=== PATIENT | male | born 1950 | race African-American/Black ===

== ENCOUNTER 2016-11-10 17:41 | Emergency (ER) | payer OTHER, MEDICAID ==
--- NOTE | 2016-11-10 19:07 | CT ---
Noncontrast Head CT Indication: Trauma.. Technique: Standard noncontrast axial CT images of the head were performed. Dose reduction techniq ues were utilized. Findings: Underlying white matter disease, moderate severity, with mild underlying atrophy. No evid ence of intracranial hemorrhage, mass effect, midline shift. Reconstructed bone windows are negative for fracture. The paranasal sinuses are clear. Impression: Negative noncontrast CT of the brain. Underlying atrophy and white matter disease. Results called to. Maurizio Santacruz PA-C at the time of the interpretation.
--- NOTE | 2016-11-10 19:11 | EDPHY ---
H & P Stated Complaint: Found on floor of [facility] w/ open ETOH bottles HPI/ROS: Chief complaint: Alcohol intoxication, fall History of present illness: This is a 66-year-old male brought to the emergency department by EMS from [facility]. Patient had apparently fallen out of his wheelchair. Staff found alcohol bottles around him. He does admit to drinking alcohol. He denies other associated signs or symptoms. He is extremely agitated and will not converse with me at length. Review of systems: Unable to obtain as patient will not speak with - Personal History Current Tetanus/Diphtheria Vaccine: Unsure Current Tetanus Diphtheria and Acellular Pertussis (TDAP): Unsure - Medical/Surgical History Hx Asthma: No Hx Chronic Respiratory Disease: No Hx Diabetes: No Hx Cardiac Disease: No Hx Renal Disease: No Hx Cirrhosis: No Hx Alcoholism: Yes Hx HIV/AIDS: No Hx Splenectomy or Spleen Trauma: No Other PMH: HTN-non compliant, neuropathy, chronic back pain. - Social History Smoking Status: Light smoker - Physical Exam Exam: General Appearance: Alert, nontoxic Eyes: PERRLA Respiratory: Lungs clear to auscultation bilaterally Cardiac: Regular rate and rhythm. Gastrointestinal: Bowel sounds present. Abdomen is soft, nondistended, nontender. Neurological: Alert. Strength and sensation intact and symmetrical. Skin: Contusion above the left eye. Otherwise a head-to-toe examination does not reveal other lesions consistent with trauma. Musculoskeletal: No apparent tenderness or bony deformity noted on palpation of head, spine, chest or extremities. He is moving the extremities well. Constitutional: Initial Vital Signs Temperature (C) 36.7 C 11/10/16 17:41 Heart Rate 109 H 11/10/16 17:41 Respiratory Rate 16 11/10/16 17:41 Blood Pressure 134/104 H 11/10/16 17:41 O2 Sat (%) 90 L 11/10/16 17:41 O2 Delivery Mode Room Air Allergies/Adverse Reactions: No Known Allergies Allergy (Unverified 09/02/16 13:58) Home Medications: Medication Instructions Recorded Acetaminophen [Tylenol 325mg (*)] 650 mg PO Q4HRS PRN #0 tab 09/05/16 Azithromycin [Zithromax] 500 mg PO DAILY #0 tab 09/05/16 Pantoprazole Sodium [Protonix 40mg 40 mg PO DAILY #0 tab 09/05/16 (*)] levOFLOXACIN [levAQUIN (*)] 750 mg PO DAILY #3 tab 09/05/16 oxyCODONE IR [Oxycodone Ir (*)] 5 - 10 mg PO Q4HRS PRN #0 tab 09/05/16 Medical Decision Making - Diagnostics Imaging: CT scan of the head and cervical spine negative for acute injury ED Course/Re-evaluation: Patient discussed with my secondary supervising physician Dr. Jose Locke. Patient is brought to the emergency department from his half-way after falling out of his wheelchair. Patient does appear intoxicated. He is very upset that he is here. He has allowed us to get CT scans which are negative for acute injury. He refuses any further intervention. He does not want blood studies or his urine checked. He does not want to be here, he would like to go back to his half-way. He will be discharged home to his half-way. Differential Diagnosis: Included but not limited to alcohol intoxication, alcohol withdrawal, complications of chronic alcohol use Departure - Departure Disposition: Home, Routine, Self-Care Clinical Impression: Alcoholic intoxication Qualifiers: Complication of substance-induced condition: uncomplicated Qualifier Code: ( F10.120) Alcohol abuse with intoxication, uncomplicated Condition: Fair Instructions: Alcohol Intoxication (ED) Additional Instructions: Follow-up with primary care doctor for recheck If symptoms worsen or new symptoms develop return to the emergency department for recheck Referrals: NONE *PRIMARY CARE P,. [Primary Care Provider] - As per Instructions
--- NOTE | 2016-11-10 19:25 | CT ---
CT Scan of the Cervical Spine (Without Contrast) Clinical Indications: Trauma. Pain. Technique: Thinly collimated multidetector helical CT imaging of the cervical spine was reviewed in multiple planes. Dose reduction techniques were utilized. Findings: Extensive features of degenerative disk disease and facet osteoarthritis are present throug hout the cervical spine. There is minimal degenerative anterolisthesis of C2 upon C3 and C3 upon C4. No fracture identified. Cervical spinal canal appears preserved. Degenerative changes are also presen t at the C1-C2 articulation. Vascular calcifications are incidentally noted at the carotid bifurcatio ns. Impression: 1. Extensive cervical degenerative changes without fracture. 2. Carotid atherosclerosis. Results called to Maurizio Santacruz PA-C at the time of the interpretation.
[2016-11-10 20:08] VITALS: BP 133/78; PULSE 94; RESP 18; TEMP 98.4; O2SAT 96
== END 2016-11-10 20:08 | disposition home or self-care (01) ==
LOC: EDUNIT#
DX: F10.120 Alcohol abuse with intoxication, uncomplicated (principal); I10 Essential (primary) hypertension; F17.200 Nicotine dependence, unspecified, uncomplicated

== ENCOUNTER 2016-11-12 17:02 | Emergency (ER) | payer OTHER, MEDICAID ==
--- NOTE | 2016-11-12 17:09 | EDPHY ---
H & P Time Seen by Provider: 11/12/16 17:08 HPI/ROS: CHIEF COMPLAINT: Fall with head injury HISTORY OF PRESENT ILLNESS: History from paramedics police and the patient. According to police the reporting democrat said they saw him fall and hit his head. Unknown loss of consciousness. Patient admits to drinking alcohol and is pretty intoxicated on arrival. Chronically is in a wheelchair because of peripheral neuropathy. Denies any complaints in the ER except that he is thirsty. Further history unobtainable because of the patient's intoxication. REVIEW OF SYSTEMS: Eye: no change in vision ENT: no sore throat Cardiac: no chest pain or syncope Pulmonary: no cough or SOB Abdomen: no vomiting, diarrhea, abdominal pain Musculoskeletal: no back pain Skin: no rash Neuro: Chronic lower extremity peripheral neuropathy, no headache. Constitutional: no fever : no urinary symptoms A comprehensive 10 point review of systems is otherwise negative aside from elements mentioned in the history of present illness. PAST MEDICAL HISTORY: Includes hypertension, alcoholism, peripheral neuropathy , previous pneumonia. Social history: Alcohol today. 36.3 General Appearance: Sleepy but easily awakens to voice, slurred speech. Eyes: No scleral icterus. ENT, Mouth: Normal mucous membranes. Right forehead hematoma with abrasion. Respiratory: Normal respiratory effort, breath sounds equal, lungs are clear to auscultation. Cardiovascular: Regular rate and rhythm. Gastrointestinal: Abdomen is soft and non tender. Neurological: He does follow commands but has slurred speech. Decreased movement of both lower extremities which apparently is chronic. Skin: Warm and dry, no rashes. Musculoskeletal: No peripheral edema and no joint swelling. No spinal tenderness. Psychiatric: Not agitated. Unable to do detailed exam because of the patient's altered mental status on arrival. Emergency Department course/MDM: I-STAT and noncontrast head CT planned. 1755: Sodium 146, potassium 3.2, glucose 108, creatinine 1.4, hematocrit 52. 0: Patient is up standing, wants to leave, fluent speech, no medical complaints. Stable for discharge. Smoking Status: Light smoker Constitutional: Initial Vital Signs Heart Rate 113 H 11/12/16 17:11 Respiratory Rate 18 11/12/16 17:11 Blood Pressure 160/143 H 11/12/16 17:11 O2 Sat (%) 94 11/12/16 17:11 O2 Delivery Mode Room Air Allergies/Adverse Reactions: No Known Allergies Allergy (Unverified 09/02/16 13:58) Home Medications: Medication Instructions Recorded Acetaminophen [Tylenol 325mg (*)] 650 mg PO Q4HRS PRN #0 tab 09/05/16 Azithromycin [Zithromax] 500 mg PO DAILY #0 tab 09/05/16 Pantoprazole Sodium [Protonix 40mg 40 mg PO DAILY #0 tab 09/05/16 (*)] levOFLOXACIN [levAQUIN (*)] 750 mg PO DAILY #3 tab 09/05/16 oxyCODONE IR [Oxycodone Ir (*)] 5 - 10 mg PO Q4HRS PRN #0 tab 09/05/16 Medical Decision Making - Diagnostics Imaging: CT head reviewed by myself so soft tissue swelling right forehead otherwise negative Mauricio at 5:55 p.m. Differential Diagnosis: Differential diagnosis considered for head injury including but not limited to concussion, skull fracture, intraparenchymal contusion, subarachnoid, subdural and epidural hematoma.l - Data Points Laboratory Results: 11/12/16 17:42 POC Hgb 17.7 H gm/dL (14.5-17.3) POC Hct 52 H % (42.8-50.6) POC Sodium 146 H mEq/L (134-144) POC Potassium 3.2 L mEq/L (3.3-5.0) POC Chloride 100 mEq/L (96-108) POC BUN 15 mg/dL (7-23) POC Creatinine 1.4 mg/dL (0.8-1.5) POC Glucose 108 H mg/dL (70-100) Point of Care Test Results: 11/12/16 17:42 POC Sodium 146 H POC Potassium 3.2 L POC Chloride 100 POC BUN 15 POC Creatinine 1.4 POC Glucose 108 H Departure - Departure Disposition: Home, Routine, Self-Care Clinical Impression: Alcoholic intoxication Qualifiers: Complication of substance-induced condition: uncomplicated Qualifier Code: ( F10.120) Alcohol abuse with intoxication, uncomplicated Contusion of forehead Qualifiers: Encounter type: initial encounter Qualifier Code: (S00.83XA) Contusion of other part of head, initial encounter Condition: Good Instructions: Alcohol Intoxication (ED) Referrals: [place] STATE,. [Primary Care Provider] - As per Instructions [facility] [Outside] - As per Instructions
[2016-11-12 17:55] VITALS: TEMP 97.3
--- NOTE | 2016-11-12 18:09 | CT ---
CT Head Without Contrast History: Fall, struck head, EtOH. Comparison: CT head November 10, 2016. Technique: Axial unenhanced images were obtained from the vertex through the skull base. Dose reduct ion techniques were utilized. Findings: Right periorbital soft tissue swelling is present with no post septal hematoma. The globes are intact. Centeno-white differentiation is preserved. There is mild diffuse cerebral atrophy with mode rate diffuse periventricular and subcortical low attenuation, suggesting chronic microvascular ischem ic gliosis. Prominent perivascular space is noted in the right basal ganglia. No intracranial hemorrh age is identified. No extraaxial fluid collections are identified. There is no mass, mass effect or evidence of infarct. Atherosclerotic calcification is present in the distal internal carotid and gilles tebral arteries. The skull and skull base are unremarkable. The paranasal sinuses and mastoid air ce lls are normally aerated. Impression: 1. No acute intracranial findings. 2. Stable mild atrophy with moderate periventricular and subcortical low attenuation consistent with chronic microvascular ischemic gliosis. Findings discussed with Dr. Felipe Ervin on November 12, 2016 at 1800 hours.
[2016-11-12 20:31] VITALS: BP 113/82; PULSE 105; RESP 16; O2SAT 91
== END 2016-11-12 20:55 | disposition home or self-care (01) ==
LOC: EDUNIT#
DX: S00.83XA Contusion of other part of head, initial encounter (principal); F10.120 Alcohol abuse with intoxication, uncomplicated; I10 Essential (primary) hypertension; F17.200 Nicotine dependence, unspecified, uncomplicated; W18.09XA Striking against other object with subsequent fall, initial encounter
CPT/HCPCS: 82947-QW

== ENCOUNTER 2016-11-13 13:38 | Emergency (ER) | payer OTHER, MEDICAID ==
[2016-11-13 13:48] VITALS: TEMP 98.1
--- NOTE | 2016-11-13 14:06 | EDPHY ---
H & P Smoking Status: Light smoker Time Seen by Provider: 11/13/16 13:57 HPI/ROS: CHIEF COMPLAINT: Alcohol intoxication. HISTORY OF PRESENT ILLNESS: The patient is a 66-year-old male who presents via EMS for alcohol intoxication. Per EMS the [facility] would not let him stay as he is wheelchair bound and cannot transfer himself. He was discharged from [facility] 2 or 3 days ago and has been homeless since then. He reports that he fell yesterday but has no complaints at this time. No fever, chills, chest pain, shortness of breath, palpitations, vomiting, diarrhea, urinary complaints, headache, lightheadedness. REVIEW OF SYSTEMS: Limited due to patient's intoxication. PAST MEDICAL HISTORY: Peripheral neuropathy, patient states wheelchair bound. SOCIAL HISTORY: Patient had been living at [facility] until 2 days ago. He currently reports that he is "homeless". VITAL SIGNS: Reviewed by me GENERAL: Unkempt, on my 1st evaluation the patient had stood up to urinate into the sink. There is a puddle of urine on the floor. He denies complaints. HEENT: Atraumatic. Eyes: No icterus, no injection. Mouth: moist mucous membranes. Very poor dentition. No erythema or lesions. Neck: supple with no adenopathy. LUNGS: Clear to auscultation bilaterally, no wheezes, rhonchi or rales. CARDIAC: Tachycardic. Regular rhythm, no rubs, murmurs or gallops. ABDOMEN: Soft, nontender, nondistended, bowel sounds normal. BACK: No CVA tenderness. EXTREMITIES: Legs are cold to the touch. No trauma. No edema. Range of motion is normal throughout. NEURO: Alert and oriented, grossly nonfocal. SKIN: Warm and dry, no rash. PSYCHIATRIC: Normal mentation, no agitation. Portions of this note were transcribed by a nuclear medical tech. I personally performed a history, physical exam, medical decision making, and confirmed accuracy of information the transcribed note. (Camila Ortiz) Constitutional: Initial Vital Signs Temperature (C) 36.7 C 11/13/16 13:46 Heart Rate 105 H 11/13/16 13:46 Respiratory Rate 12 11/13/16 13:46 Blood Pressure 147/90 H 11/13/16 13:46 O2 Sat (%) 92 11/13/16 13:46 O2 Delivery Mode Room Air Allergies/Adverse Reactions: No Known Allergies Allergy (Verified 11/13/16 13:46) Home Medications: Medication Instructions Recorded Acetaminophen [Tylenol 325mg (*)] 650 mg PO Q4HRS PRN #0 tab 09/05/16 Azithromycin [Zithromax] 500 mg PO DAILY #0 tab 09/05/16 Pantoprazole Sodium [Protonix 40mg 40 mg PO DAILY #0 tab 09/05/16 (*)] levOFLOXACIN [levAQUIN (*)] 750 mg PO DAILY #3 tab 09/05/16 oxyCODONE IR [Oxycodone Ir (*)] 5 - 10 mg PO Q4HRS PRN #0 tab 09/05/16 Medical Decision Making ED Course/Re-evaluation: After my initial examination I consulted with Case Management. The patient reports that he was recently discharged from [facility]. Case Management will speak to [facility]. Hopeful that patient will be able to return to [facility]. If patient not able to return to [facility], will see if case management has other options. If not, patient seems clinically sober enough to be discharged from ED. (Camila Ortiz) Differential Diagnosis: Differential diagnoses for the patient's symptom complex was considered including but not limited to alcohol intoxication, hypothermia, homelessness, peripheral neuropathy, inability to ambulate. (Camila Ortiz) Other Provider: Care assumed at 3:30 p.m.. He is not welcome back at [facility]. Apparently he was evicted a week ago. Case management evaluated the patient and that is not an option for him at this time. Patient is discharged from the emergency department per Dr. Ortiz instructions. (Felipe Ervin) Departure - Departure Disposition: Home, Routine, Self-Care Clinical Impression: Alcohol intoxication Qualifiers: Complication of substance-induced condition: uncomplicated Qualified Code(s): F10.120 - Alcohol abuse with intoxication, uncomplicated Condition: Good Instructions: Alcohol Intoxication (ED) Additional Instructions: The warming [facility] for , is located at [place] [address], [place] [address] Referrals: Patient,NotPresent [Primary Care Provider] - As per Instructions [facility],. [Clinic] - As per Instructions Report Scribed for: Camila Ortiz Report Scribed by: Matthew Lund Date of Report: 11/13/16 Time of Report: 14:40
[2016-11-13 16:31] VITALS: BP 132/79; PULSE 81; RESP 17; O2SAT 96
== END 2016-11-13 16:30 | disposition home or self-care (01) ==
LOC: EDUNIT#
DX: F10.120 Alcohol abuse with intoxication, uncomplicated (principal)

== ENCOUNTER 2016-12-08 21:46 | Emergency (ER) | payer OTHER, MEDICAID ==
--- NOTE | 2016-12-08 21:52 | EDPHY ---
H & P Time Seen by Provider: 12/08/16 21:51 HPI/ROS: HPI CHIEF COMPLAINT: "I need my wheelchair charged" HISTORY OF PRESENT ILLNESS: This patient is 66-year-old male significant past medical history for neuropathy, and alcoholism, who presents to the emergency room by EMS after he called 911 stating initially he had chest pain however after EMS make contact with the patient denies having chest pain he tells me that he just needed a ride to the emergency room as his wheelchair is out of power and he needs his wheelchair charged. Unfortunately the patient presented to the emergency room by EMS he has no medical complaint, his wheelchair is not present. The patient has no way to get out of the emergency room as he cannot walk. He tells me his power wheelchair bound [place]. Past Medical History: Neuropathy, alcoholism Social History:Patient is homeless, denies drugs, tobacco, does admit to drinking alcohol occasionally Family History: Noncontributory ROS REVIEW OF SYSTEMS: A comprehensive 10 point review of systems is otherwise negative aside from elements mentioned in the history of present illness. Exam Constitutional nontoxic appearing,triage nursing summary reviewed, vital signs reviewed, awake/alert. Eyes normal conjunctivae and sclera, EOMI, PERRLA. HENT oropharynx shows poor dentition, atraumatic, moist mucus membranes, no epistaxis, neck supple/ no meningismus, no raccoon eyes. Respiratory clear to auscultation bilaterally, normal breath sounds, no respiratory distress, no wheezing. Cardiovascular rate normal, regular rhythm, no murmur, no edema, distal pulses normal. Gastrointestinal soft, non-tender, no rebound, no guarding, normal bowel sounds, no distension, no pulsatile mass. Genitourinary no CVA tenderness. Musculoskeletal no midline vertebral tenderness, full range of motion, no calf swelling, no tenderness of extremities, no meningismus, good pulses, neurovascularly intact. Skin pink, warm, & dry, no rash, skin atraumatic. Neurologic awake, alert and oriented x 3, AAOx3, moves all 4 extremities equally, motor intact, sensory intact, CN II-XII intact, normal cerebellar, normal vision, normal speech. Psychiatric normal mood/affect. Heme/Lymph/Immune no lymphadenopathy. Differential Diagnosis: Includes but is not limited to in a particular order chronic neuropathy, homelessness, alcoholism, need for transportation as his wheelchair is without power, homelessness poor social situation Medical Decision Making: At this time this patient has no medical complaint. He is medically cleared from the emergency room. However will try to help him out and somehow get his wheelchair back with him and or charged. Source: Patient, EMS - Medical/Surgical History Hx Asthma: No Hx Chronic Respiratory Disease: No Hx Diabetes: No Hx Cardiac Disease: No Hx Renal Disease: No Hx Cirrhosis: No Hx Alcoholism: Yes Hx HIV/AIDS: No Hx Splenectomy or Spleen Trauma: No Other PMH: HTN-non compliant, neuropathy, chronic back pain, ETOH. - Social History Smoking Status: Light smoker Allergies/Adverse Reactions: No Known Allergies Allergy (Verified 11/13/16 13:46) Home Medications: Medication Instructions Recorded Acetaminophen [Tylenol 325mg (*)] 650 mg PO Q4HRS PRN #0 tab 09/05/16 Azithromycin [Zithromax] 500 mg PO DAILY #0 tab 09/05/16 Pantoprazole Sodium [Protonix 40mg 40 mg PO DAILY #0 tab 09/05/16 (*)] levOFLOXACIN [levAQUIN (*)] 750 mg PO DAILY #3 tab 09/05/16 oxyCODONE IR [Oxycodone Ir (*)] 5 - 10 mg PO Q4HRS PRN #0 tab 09/05/16 Departure - Departure Disposition: Home, Routine, Self-Care Clinical Impression: Neuropathy Condition: Good Instructions: Peripheral Neuropathy (ED) Referrals: Patient,NotPresent [Primary Care Provider] - As per Instructions
[2016-12-08 23:58] VITALS: BP 166/90; PULSE 87; RESP 16; TEMP 97.7; O2SAT 97
== END 2016-12-08 23:58 | disposition home or self-care (01) ==
LOC: EDUNIT#
DX: G62.9 Polyneuropathy, unspecified (principal); I10 Essential (primary) hypertension; F17.200 Nicotine dependence, unspecified, uncomplicated

== ENCOUNTER 2016-12-12 09:11 | Emergency (ER) | payer OTHER, MEDICAID ==
[2016-12-12 09:34] VITALS: RESP 18
--- NOTE | 2016-12-12 09:44 | EDPHY ---
H & P Time Seen by Provider: 12/12/16 09:42 HPI/ROS: CHIEF COMPLAINT: Positive TB skin test HISTORY OF PRESENT ILLNESS: Patient arrives by EMS with this correction with a positive left forearm TB skin test. Hospitalization in August for pneumonia and subsequent admission to [facility]. Patient denies any symptoms. Specifically denies chest pain, night sweats, weight loss, fevers, or shortness of breath ,or cough. No hemoptysis. He says " I am healthy as a horse." REVIEW OF SYSTEMS: Eye: no change in vision ENT: no sore throat Cardiac: no chest pain or syncope Pulmonary: no cough or SOB Abdomen: no vomiting, diarrhea, abdominal pain Musculoskeletal: no back pain Skin: no rash Neuro: no headache Constitutional: no fever : no urinary symptoms A comprehensive 10 point review of systems is otherwise negative aside from elements mentioned in the history of present illness. PAST MEDICAL HISTORY: Discharge summary dated 09/05/2016 personally reviewed by myself includes pneumonia, back pain, hypertension, anemia. CT angiography of the chest did not show pulmonary embolism. Homelessness and alcoholism. Social history: Homeless, smoker, no alcohol for 1 month at least. General Appearance: Alert and conversant, cooperative. Eyes: No scleral icterus. ENT, Mouth: Normal mucous membranes. Poor dentition Respiratory: Normal respiratory effort, breath sounds equal, lungs are clear to auscultation. Cardiovascular: Regular rate and rhythm. Gastrointestinal: Abdomen is soft and non tender. Neurological: Alert and oriented x3. Normally conversant. Face symmetric, normal movement and sensation in all extremities. Skin: Warm and dry, no rashes. Musculoskeletal: No peripheral edema and no joint swelling. Psychiatric: Not agitated. Emergency Department course/MDM: Positive TB skin test no respiratory or constitutional symptoms. Chest x-ray. Discussed with Joanie at 1131. Discharge with outpatient follow-up. Smoking Status: Light smoker Constitutional: Initial Vital Signs Temperature (C) 36.6 C 12/12/16 09:16 Heart Rate 92 12/12/16 09:16 Respiratory Rate 18 12/12/16 09:16 Blood Pressure 169/106 H 12/12/16 09:16 O2 Sat (%) 97 12/12/16 09:16 O2 Delivery Mode Room Air Allergies/Adverse Reactions: No Known Allergies Allergy (Verified 12/08/16 22:05) Home Medications: Medication Instructions Recorded Acetaminophen [Tylenol 325mg (*)] 650 mg PO Q4HRS PRN #0 tab 09/05/16 Azithromycin [Zithromax] 500 mg PO DAILY #0 tab 09/05/16 Pantoprazole Sodium [Protonix 40mg 40 mg PO DAILY #0 tab 09/05/16 (*)] levOFLOXACIN [levAQUIN (*)] 750 mg PO DAILY #3 tab 09/05/16 oxyCODONE IR [Oxycodone Ir (*)] 5 - 10 mg PO Q4HRS PRN #0 tab 09/05/16 Medical Decision Making - Diagnostics Imaging: Chest x-ray interpreted by myself and reviewed with Dr. Jo at 11:30 a.m., normal. Departure - Departure Disposition: Home, Routine, Self-Care Clinical Impression: Recent conversion of TB skin test Condition: Good Instructions: Tuberculin (By injection) Referrals: Diana Browne PAC [Primary Care Provider] - As per Instructions Yodit Nair MD [Medical Doctor] - As per Instructions (You need to see this Infectious Disease Clinic within the next 2 weeks.)
[2016-12-12 11:57] VITALS: BP 162/122; PULSE 94; TEMP 98.1; O2SAT 98
== END 2016-12-12 13:26 | disposition home or self-care (01) ==
LOC: EDUNIT#
DX: Z11.1 Encounter for screening for respiratory tuberculosis (principal); I10 Essential (primary) hypertension; F17.200 Nicotine dependence, unspecified, uncomplicated